=== PATIENT | male | born 1955 | race Caucasian/White ===

== ENCOUNTER 2018-09-17 07:51 | Emergency (ER) | payer OTHER ==
[~2018-09-17] VITALS: Ht 182.9 cm; Wt 90.0 kg
[2018-09-17] MEDS ORDERED: ONDANSETRON 4 MG INJ IV STA (07:55)
[2018-09-17 07:58] VITALS: Ht 182.9 cm; Wt 90.0 kg
[2018-09-17] MEDS ORDERED: SOD CHLORIDE 0.9% 1,000 ML IV ONE (08:00)
--- NOTE | 2018-09-17 08:04 | ERD ---
ER Documentation Chief Complaint Chief Complaint BIB RA FOR INTENTIONAL OD BETO CYMBALTA HPI This is a 63-year-old male who presents for evaluation of intentional overdose, on Cymbalta. Patient presented by them by EMS, pill bottle was empty, episode occurred about a hour ago. He has a prior history of coronary disease, he denies other ingestions. Endorses nausea, and presented actively vomiting. ROS All systems reviewed and are negative except as per history of present illness. Allergies Allergies: Coded Allergies: Penicillins (Verified Allergy, Unknown, 09/17/18) Physical Exam Vitals Vital Signs Date Temp Pulse Resp B/P (MAP) Pulse Ox O2 O2 Flow FiO2 Time Delivery Rate 09/17/18 59 12 161/75 100 Room Air 09:40 (103) 09/17/18 53 31 188/75 100 Room Air 08:31 (112) 09/17/18 97.9 67 18 109/65 97 07:58 (80) Physical Exam Const: Uncomfortable appearing, Head: Atraumatic Eyes: Normal Conjunctiva ENT: Normal External Ears, Nose and Mouth. Neck: Full range of motion. No meningismus. Resp: Clear to auscultation bilaterally Cardio: Regular rate and rhythm, no murmurs Abd: Soft, non tender, non distended. Normal bowel sounds Skin: No petechiae or rashes Back: No midline or flank tenderness Ext: No cyanosis, or edema Neur: Awake and alert Psych: depressed suicidal Result Diagram: 09/17/18 0807 09/17/18 0807 Results 24 hrs Laboratory Tests Test 09/17/18 08:06 09/17/18 08:07 Urine Color YELLOW Urine Clarity SLIGHTLY CLOUDY Urine pH 5.0 Urine Specific [place] 1.013 Urine Ketones TRACE mg/dL Urine Nitrite NEGATIVE mg/dL Urine Bilirubin NEGATIVE mg/dL Urine Urobilinogen NEGATIVE mg/dL Urine Leukocyte Esterase NEGATIVE Berta/ul Urine Microscopic RBC 0 /HPF Urine Microscopic WBC 2 /HPF Urine Bacteria FEW /HPF Urine Hemoglobin NEGATIVE mg/dL Urine Glucose NEGATIVE mg/dL Urine Total Protein 3+ mg/dl Urine Opiates Screen Negative Urine Barbiturates Negative Urine Amphetamines Screen Negative Urine Benzodiazepines Screen Negative Urine Cocaine Screen Negative Urine Cannabinoids Positive White Blood Count 14.4 10^3/ul Red Blood Count 4.65 10^6/ul Hemoglobin 13.8 g/dl Hematocrit 40.0 % Mean Corpuscular Volume 86.0 fl Mean Corpuscular Hemoglobin 29.7 pg Mean Corpuscular Hemoglobin Concent 34.5 g/dl Red Cell Distribution Width 13.2 % Platelet Count 122 10^3/UL Mean Platelet Volume 10.4 fl Immature Granulocytes % 1.400 % Neutrophils % 77.1 % Lymphocytes % 14.3 % Monocytes % 5.5 % Eosinophils % 1.4 % Basophils % 0.3 % Nucleated Red Blood Cells % 0.0 /100WBC Immature Granulocytes # 0.200 10^3/ul Neutrophils # 11.1 10^3/ul Lymphocytes # 2.1 10^3/ul Monocytes # 0.8 10^3/ul Eosinophils # 0.2 10^3/ul Basophils # 0.1 10^3/ul Nucleated Red Blood Cells # 0.0 10^3/ul Prothrombin Time 14.3 Sec Prothrombin Time Ratio 1.1 INR International Normalized Ratio 1.10 Sodium Level 142 mmol/L Potassium Level 3.5 mmol/L Chloride Level 108 mmol/L Carbon Dioxide Level 16 mmol/L Anion Gap 18 Blood Urea Nitrogen 23 mg/dl Creatinine 1.39 mg/dl Est Glomerular Filtrat Rate mL/min 51 mL/min Glucose Level 158 mg/dl Calcium Level 9.3 mg/dl Total Bilirubin 1.0 mg/dl Direct Bilirubin 0.00 mg/dl Indirect Bilirubin 1.0 mg/dl Aspartate Amino Transf (AST/SGOT) 35 IU/L Alanine Aminotransferase (ALT/SGPT) 35 IU/L Alkaline Phosphatase 82 IU/L Creatine Kinase 65 IU/L Total Protein 8.0 g/dl Albumin 4.2 g/dl Globulin 3.80 g/dl Albumin/Globulin Ratio 1.10 Salicylates Level < 1.0 mg/dl Acetaminophen Level < 10.0 ug/ml Ethyl Alcohol Level < 10.0 mg/dl Current Medications Medications Dose Sig/Thomas Start Time Status Last (Trade) Ordered Route PRN Stop Time Admin Dose Reason Admin Ondansetron 4 mg ONCE STAT 09/17/18 DC 09/17/18 HCl (Zofran IV 07:55 08:28 Inj) 09/17/18 07:57 Sodium 1,000 ml @ Q1H ONCE 09/17/18 DC 09/17/18 Chloride 1,000 mls/hr IV 08:00 08:29 09/17/18 08:59 Lorazepam 0.5 mg ONCE ONCE 09/17/18 DC 09/17/18 (Ativan) IV 09:00 09:11 09/17/18 09:01 1,000 mg ONCE STAT 09/17/18 DC 09/17/18 Acetaminophen PO 08:52 09:11 (Tylenol 09/17/18 08:53 Tab) Lorazepam 0.5 mg ONCE ONCE 09/17/18 DC 09/17/18 (Ativan) IV 12:00 11:59 09/17/18 12:01 Procedures/MDM 63-year-old male presents for evaluation of intentional overdose of Cymbalta. Patient appears hemodynamically stable, will plan for monitoring for approximately 6 hours, to ensure patient remained clinically stable after SNRI overdose. Labs sent including CK, Tylenol and salicylate. Patient will require emergent psychiatric consult for suicidal intentions. EKG: Rate/Rhythm: Normal Sinus Rhythm QRS, ST, T-waves: Left ventricular hypertrophy, no changes consistent w/ acute ischemia Impression: No evidence of ischemia or arrhythmia 12:09 PM: Psychiatry consulted, recommended 5150 hold. Poison control also consulted, Cymbalta is well-tolerated, and recommended 6-hour telemetry observation, after that patient may be medically cleared, as of 1 PM, the patient will be 6 hours postingestion, patient is a [facility] member, and discussed case with [facility], Dr. Mcfadden, accepts transfer, awaiting transfer. Departure Diagnosis: Primary Impression: Intentional drug overdose Encounter type: initial encounter Qualified Codes: T50.902A - Poisoning by unspecified drugs, medicaments and biological substances, intentional self- harm, initial encounter Condition: Stable XIOMARA BENAVIDES MD Sep 17, 2018 08:04
[2018-09-17] MEDS ORDERED: ACETAMINOPHEN 500 MG TAB PO STA (08:52)
[2018-09-17] MEDS ORDERED: LORAZEPAM 2 MG INJ IV ONE ×2 (09:00→12:00)
--- NOTE | 2018-09-17 09:18 | PSY ---
Date/Time of Note Date/Time of Note DATE: 09/17/18 TIME: 10:14 Psychiatric Subjective Eval Consent Pt consented to telemedicine: Yes Subjective Evaluation Patient location: emergency Chief Complaint: BIB RA FOR INTENTIONAL OD BETO CYMBALTA Reason for consult: suicidal overdose History of present illness the patient states that he took about 50 of his cymbalta and this morning in an attempt to kill himself. the patient states that he is tired of living. he states that he had strokes, heart attacks, he is in constant pain in his head, he claims that no one will do anything about it. he is very angry and irritable during the interview. states that no one wants to help him and he just wants to . no psychosis or mj. Past psychiatric history the patient stated that he was diagnosed with bipolar disorder and tried many medications, including lithium. he states that nothing has helped. he denies any psychiatric hospitalizations or previous suicide attempts. Hospitalization: no Family History negative for psychiatric illness Medical history Problems Medical Problems: (1) Intentional drug overdose Status: Acute Substance Abuse Substance use: other Substance abuse history: Yes Prior substance abuse treatmen: Yes Social History Marital status: other DPA/Conservatorship: No Occupation/Skilled Nursing: retired Psychiatric Objective Eval Review of Systems: Review of Systems: Not Applicable Physical Examination: Physical Examination: Not Applicable Mental Status Examination: Appearance: Groomed Eye Contact: Poor Psychomotor Activity: Agitated Behavior: Hostile Speech: Loud AFFECT: Libile Mood: Angry Though Process: Linear, FOI Suicidal: Yes Homicidal: No On 72 hour hold: Yes Orientation: x4 Cognition: Alert Insight: Impared Judgement: Impared Attention Span: Distractible Laboratory Results Laboratory Tests Test 09/17/18 08:07 White Blood Count 14.4 10^3/ul Red Blood Count 4.65 10^6/ul Hemoglobin 13.8 g/dl Hematocrit 40.0 % Mean Corpuscular Volume 86.0 fl Mean Corpuscular Hemoglobin 29.7 pg Mean Corpuscular Hemoglobin Concent 34.5 g/dl Red Cell Distribution Width 13.2 % Platelet Count 122 10^3/UL Mean Platelet Volume 10.4 fl Immature Granulocytes % 1.400 % Neutrophils % 77.1 % Lymphocytes % 14.3 % Monocytes % 5.5 % Eosinophils % 1.4 % Basophils % 0.3 % Nucleated Red Blood Cells % 0.0 /100WBC Immature Granulocytes # 0.200 10^3/ul Neutrophils # 11.1 10^3/ul Lymphocytes # 2.1 10^3/ul Monocytes # 0.8 10^3/ul Eosinophils # 0.2 10^3/ul Basophils # 0.1 10^3/ul Nucleated Red Blood Cells # 0.0 10^3/ul Prothrombin Time 14.3 Sec Prothrombin Time Ratio 1.1 INR International Normalized Ratio 1.10 Sodium Level 142 mmol/L Potassium Level 3.5 mmol/L Chloride Level 108 mmol/L Carbon Dioxide Level 16 mmol/L Anion Gap 18 Blood Urea Nitrogen 23 mg/dl Creatinine 1.39 mg/dl Est Glomerular Filtrat Rate mL/min 51 mL/min Glucose Level 158 mg/dl Calcium Level 9.3 mg/dl Total Bilirubin 1.0 mg/dl Direct Bilirubin 0.00 mg/dl Indirect Bilirubin 1.0 mg/dl Aspartate Amino Transf (AST/SGOT) 35 IU/L Alanine Aminotransferase (ALT/SGPT) 35 IU/L Alkaline Phosphatase 82 IU/L Creatine Kinase 65 IU/L Total Protein 8.0 g/dl Albumin 4.2 g/dl Globulin 3.80 g/dl Albumin/Globulin Ratio 1.10 Salicylates Level < 1.0 mg/dl Acetaminophen Level < 10.0 ug/ml Ethyl Alcohol Level < 10.0 mg/dl Assessment and Plan Assessment/Diagnosis Diagnosis major depressive disorder, recurrent, severe, without psychotic features Recommendation/Plan Medication Management recommend ativan 0.5 mg every 4 hours as needed for anxiety and agitation. Discharge Disposition: Psychiatric inpatient Legal Status: Continue involuntary hold LESLIE ARMANI Sep 17, 2018 09:18
[2018-09-17] MEDS ORDERED: LORAZEPAM 1 MG TAB PO ONE (19:00)
[2018-09-17] MEDS ORDERED: ACETAMINOPHEN 325 MG TAB PO ONE (19:00)
[2018-09-17 20:17] VITALS: BP 153/88; PULSE 62; RESP 18
== END 2018-09-17 22:53 | disposition home or self-care (01) ==
LOC: E/R 07:51
DX: T43.212A Poisoning by selective serotonin and norepinephrine reuptake inhibitors, intentional self-harm, initial encounter (principal); I25.10 Atherosclerotic heart disease of native coronary artery without angina pectoris
CPT/HCPCS: 36415; 80053; 80307; 81001; 82550; 85025; 85610; 93005; 96374; 96375; 96376; 99284; J2060; J2405; J7030

== ENCOUNTER 2018-10-05 06:43 | Emergency (ER) | payer OTHER ==
[~2018-10-05] VITALS: Ht 185.4 cm; Wt 106.8 kg
[~2018-10-05 06:43] MED LIST: CEPH-443 PO; CYCL5TAB PO; IBUP-1542 PO; PRED20TA PO
[2018-10-05] MEDS ORDERED: KETOROLAC 15 MG INJ IM STA (06:53)
[2018-10-05 06:57] VITALS: Ht 185.4 cm; Wt 106.8 kg
[2018-10-05] MEDS ORDERED: ACETAMINOPHEN 325 MG TAB PO ONE (07:00)
--- NOTE | 2018-10-05 07:07 | ERD ---
ER Documentation Chief Complaint Chief Complaint Back pain, pain control HPI This is a 63-year-old male with a past medical history of hypertension, hyperlipidemia, COPD, hypothyroidism, seizure disorder who is presenting for pain control. The patient reportedly had a ground-level fall 3 days ago. He fell backwards landing on his buttock. He reports hitting his head slightly as well. The patient did not lose consciousness. He was evaluated at [place] and ultimately determined to be stable for discharge. No diagnostic imaging was reportedly completed. He was offered Tylenol, but he declined this medication. The patient has endorsed a moderate aching soreness to the lower back since then. The patient is able to ambulate and move, but is back feels sore when he does not. He does not endorse any focal deficits. He has no weakness or numbness or tingling to the face or extremities. He has no saddle anesthesia. He does not endorse incontinence or retention of urine or stool. The patient's pain is worse with movement. It is relieved by sitting still. The patient has a secondary complaint of redness, warmth and swelling to the left foot. He reports that this began approximately 2 days ago. He does not endorse any exacerbating or alleviating factors. The patient denies feeling sick recently. The patient denies fever or chills. The patient has had no headache or vision changes. The patient does not endorse neck or back pain. The patient denies lightheadedness or dizziness. The patient has had no chest pain or trouble breathing. The patient denies nausea or vo miting. The patient denies abdominal pain. The patient denies changes to bowel movements or urination. ROS All systems reviewed and are negative except as per history of present illness. Allergies Allergies: Coded Allergies: Penicillins (Verified Allergy, Mild, Rash, 09/17/18) tetanus and diphtheria toxoids (Verified Allergy, Mild, Rash, 09/17/18) PMhx/Soc History of Surgery: Yes (brain surgery, finger amputation left) Anesthesia Reaction: No Hx Neurological Disorder: Yes (Epilepsy) Hx Respiratory Disorders: Yes (COPD) Hx Cardiac Disorders: Yes (HLD, HTN) Hx Psychiatric Problems: Yes (anxiety) Hx Miscellaneous Medical Probl: Yes (hypothyroid, cirrohsis) Hx Alcohol Use: No Hx Substance Use: No Hx Tobacco Use: Yes FmHx Family History: No diabetes Physical Exam Physical Exam Const: No acute distress Head: Atraumatic Eyes: Normal Conjunctiva ENT: Normal External Ears, Nose and Mouth. Neck: Full range of motion. No meningismus. Resp: Clear to auscultation bilaterally Cardio: Regular rate and rhythm, no murmurs Abd: Soft, non tender, non distended. Normal bowel sounds Skin: No petechiae or rashes Back: No flank tenderness. Mild midline lumbar tenderness without step-offs or deformities. Ext: No cyanosis. Left pedal edema with erythema and warmth. Neur: Awake and alert Psych: Normal Mood and Affect Procedures/MDM MDM Previous medical records, if available, were reviewed. The patient presents for exacerbated low back pain after a ground-level fall from 3 days ago. I have low suspicion for emergent posttraumatic injury. Patient has no step-offs or deformities. I have low suspicion for acute emergent fracture or listhesis. I do not suspect retroperitoneal bleeding. The patient is ambulatory and mobile without difficulty. The patient does not have any saddle anesthesia or any focal deficits. The patient has not been incontinent of urine or stool. The patient has not had any retention of urine or stool. I have low suspicion for spinal cord injury. There is no evidence of sciatica. The patient denies any abdominal pain. The patient does not have any palpable pulsatile masses in the abdomen. I have low suspicion for AAA or aortic aneurysm rupture or dissection. The patient does not have any flank tenderness. The patient does not have any urinary complaints or gross hematuria. I have low suspicion for nephrolithiasis as the etiology of symptoms. The patient does not have any left upper quadrant tenderness radiating to the back. I have low suspicion for pancreatitis. The patient does not have a history of IV drug use. The patient is afebrile. The patient does not have symptoms consistent with an epidural abscess or other infectious etiologies. There are no overlying skin changes. There is no evidence of cellulitis or abscess or another soft tissue infection. The patient does endorse hitting his head 3 days ago as well. He does not endorse any headache or vision changes at this time. He did not lose consciousness and has had normal mentation since the fall. I have low suspicion for concussion. The patient has no focal deficits. I've low suspicion for intracranial pathology. I have low suspicion for cerebral ischemia or intracranial hemorrhage. The patient has no cervical spine tenderness. He can move his neck in all directions without any pain. As stated above, he does not have any focal deficits. He is not altered or intoxicated. He does not have any distracting injuries. The patient's cervical spine was clinically cleared using the Nexus C-spine rule. The patient does not have any saddle anesthesia. He has not been incontinent of urine or stool. He has not had any retention of urine or stool. I have low suspicion for spinal cord injury. TREATMENT/DISPOSITION The patient was treated with Tylenol and Toradol in the emergency department. DISCHARGE Upon reevaluation of the patient, symptoms have improved. No emergent diagnoses were identified. At this time, I feel that the patient stable for discharge. The patient was instructed to follow-up with a primary care physician in 1-3 days. The patient will be given strict precautions with which to return to the emergency department. Prescriptions: Ibuprofen, Flexeril, prednisone, Keflex The patient's blood pressure was elevated at greater than 120/80 while in the emergency department. The patient was otherwise stable with no evidence of hypertensive urgency or emergency. The patient does not require admission for blood pressure control. I have discussed with the patient the risks of hypertension. I have instructed the patient to return to the ER for any new or worsening symptoms including chest pain, shortness of breath, headache, blurred vision, confusion, nausea, vomiting or LOC. I have advised the patient to follow up with the primary care physician for outpatient monitoring and treatment for hypertension in 1-3 days. DISCLAIMER Inadvertent spelling and grammatical errors are likely due to EHR/dictation software use and do not reflect on the overall quality of patient care. Note that the electronic time recorded on this note does not necessarily reflect the actual time of the patient encounter. Departure Diagnosis: Primary Impression: Low back pain Chronicity: unspecified Back pain laterality: midline Sciatica presence: without sciatica Qualified Codes: M54.5 - Low back pain Additional Impressions: Fall with no significant injury Encounter type: initial encounter Qualified Codes: W19.XXXA - Unspecified fall, initial encounter Cellulitis of left foot Condition: Stable Patient Instructions: Back Pain (Acute Or Chronic), Cellulitis, Fall Prevention Additional Instructions: Thank you for for coming to [facility] for your care today. Please ask your nurse or provider if you have questions about your care today and do not leave until all your questions have been answered. Please use any medications given as directed and follow-up with your doctor (or the doctor you were referred to) in the next 1-3 days. If you do not have a primary care doctor you may follow up at the [facility] or [facility] (listed below). You may also use motrin and tylenol as needed for fever and/or pain unless instructed otherwise by your provider or nurse. Indications for more urgent follow-up have been discussed, but you may return to the Emergency Department at ANY time for any worrisome or worsening symptoms. If you have abdominal pain, please know that no test or exam you received is perfect and you should follow up within 8 hours for continued pain. If you had any imaging studies today, such as an X-Ray or CT Scan, these studies will be reviewed later by a radiologist. You will be called if there are important findings that were not identified today, so make sure the contact information you provided at registration is correct. If you received any narcotic pain control medicine today, such as Vicodin, Morphine or Dilaudid, your coordination and judgment may be affected for a number of hours. Please do not drive or operate heavy machinery, and you may want someone to assist you at home. If you were given a prescription for narcotic medication, be aware that it is very addictive- use sparingly and only if necessary. PLEASE SEEK FURTHER EVALUATION AND MANAGEMENT AT YOUR DOCTORS OFFICE WITHIN THE NEXT 1-3 DAYS. IT IS YOUR RESPONSIBILITY TO MAKE AN APPOINTMENT FOR FOLOW-UP CARE. IF YOU HAVE A PRIMARY DOCTOR, PLEASE CALL THEIR OFFICE TO SCHEDULE AN APPOINTMENT FOR FOLLOW UP. IF YOU DO NOT HAVE A PRIMARY DOCTOR YOU CAN CALL OUR PHYSICIAN REFERRAL HOTLINE AT IF YOU CAN NOT AFFORD TO SEE A PHYSICIAN YOU CAN CHOSE FROM THE FOLLOWING [facility]LY [facility] CL[facility]: [facility] [address] [facility] [address] [facility]. [facility] [address] [facility] [address] [facility] [address] [facility]. [facility]. [address] CHIKIS SLOAN MD Oct 05, 2018 07:05
[2018-10-05 08:26] VITALS: BP 141/91; PULSE 68; RESP 17
== END 2018-10-05 08:27 | disposition home or self-care (01) ==
LOC: E/R 06:43
DX: M54.5 Low back pain (principal); L03.116 Cellulitis of left lower limb; J44.9 Chronic obstructive pulmonary disease, unspecified; I10 Essential (primary) hypertension; E03.9 Hypothyroidism, unspecified; Z87.891 Personal history of nicotine dependence
CPT/HCPCS: 96372; 99284; J1885